=== PATIENT | female | born 1950 ===

== ENCOUNTER 2017-04-17 12:32 | Emergency (ER) | payer MEDICAID, OTHER ==
[2017-04-17 12:32] VITALS: BMI 31.8
[2017-04-17 12:53] VITALS: BP 98/66; PULSE 66; RESP 16; TEMP 99.3; O2SAT 95
[2017-04-17] MEDS ORDERED: TraMADol/Apap 37.5/325 mg Tab PO STA (13:37)
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
[2017-04-17 14:05] LABS: PH,URINE 6.5 (4.7-8.0); URINE BILIRUBIN NEGATIVE (NEGATIVE); URINE BLOOD NEGATIVE (NEGATIVE); URINE GLUCOSE (UA) NEGATIVE (NEGATIVE); URINE LEUKOCYTE ESTERASE NEGATIVE Leu/uL (NEGATIVE); URINE NITRATE NEGATIVE (NEGATIVE); URINE PROTEIN NEGATIVE mg/dL (<30 mg/dL); URINE UROBILINOGEN 0.2 E.U./dL (<1 E.U./dL)
[2017-04-17 14:07] LABS: URINE APPEARANCE CLEAR (CLEAR); URINE COLOR STRAW (YELLOW)
--- NOTE | 2017-04-17 14:28 | RAD ---
PROCEDURE: Right Hip and pelvis Radiographs. HISTORY: pain COMPARISON: None. FINDINGS: BONES: Normal. No fracture. JOINTS: Normal. SOFT TISSUES: Normal. OTHER FINDINGS: None. IMPRESSION: Negative study
== END 2017-04-17 14:39 | disposition home or self-care (01) ==
LOC: ED 12:32
DX: M54.31 Sciatica, right side (principal)
CPT/HCPCS: 73502; 81003; 96372; 99282; J1885

== ENCOUNTER 2017-08-04 11:14 | Emergency (ER) | payer MEDICARE, OTHER ==
[2017-08-04 11:15] VITALS: BMI 31.8
[2017-08-04 11:25] VITALS: RESP 18; TEMP 98
[2017-08-04] MEDS ORDERED: Promethazine/Cod 6.25mg-10mg/5ml Syr UD PO STA (11:59)
--- NOTE | 2017-08-04 11:59 | ED PDOC ---
Arrival/HPI - General Chief Complaint: Shortness Of Breath Time Seen by Provider: 08/04/17 11:55 Historian: Patient - History of Present Illness Narrative History of Present Illness (Text): 08/04/17 11:55 This 66 yo female with pmh dm, asthma, presents to this ED c/o SOB, wheezing, cough, sore throat x 2 days. Patient admits URI symptoms for 4 weeks. Denies fever, CP, palpitation, abdominal pain, urinary symptoms, recent travel, leg swelling, calf pain, hemoptysis, recent surgery, dizziness, lugo, neck stiffness, or abnormal gait. Time/Duration: Other (see hpi) Context: Home Past Medical History - Provider Review Nursing Documentation Reviewed: Yes - Infectious Disease Hx of Infectious Diseases: None - Tetanus Immunization Tetanus Immunization: Up to Date - Cardiac Hx Cardiac Disorders: Yes Hx Peripheral Edema: Yes - Pulmonary Hx Respiratory Disorders: Yes Hx Asthma: Yes - Neurological Hx Neurological Disorder: No - HEENT Hx HEENT Disorder: No - Renal Hx Renal Disorder: No - Endocrine/Metabolic Hx Endocrine Disorders: Yes Hx Diabetes Mellitus Type 2: Yes - Hematological/Oncological Hx Blood Disorders: No - Integumentary Hx Dermatological Disorder: No - Musculoskeletal/Rheumatological Hx Musculoskeletal Disorders: Yes Hx Arthritis: Yes - Gastrointestinal Hx Gastrointestinal Disorders: Yes Hx Gastritis: Yes - Genitourinary/Gynecological Hx Genitourinary Disorders: No - Psychiatric Hx Psychophysiologic Disorder: Yes Hx Anxiety: Yes Hx Depression: Yes Hx Substance Use: No - Past Surgical History Past Surgical History: No Previous - Surgical History Hx Tubal Ligation: Yes - Anesthesia Hx Anesthesia: Yes - Suicidal Assessment Feels Threatened In Home Enviroment: No Family/Social History - Physician Review Nursing Documentation Reviewed: Yes Family/Social History: Other (noncontributory) Smoking Status: Never Smoked Hx Alcohol Use: No Hx Substance Use: No Hx Substance Use Treatment: No Allergies/Home Meds Allergies/Adverse Reactions: Allergies Penicillins Allergy (Verified 08/04/17 11:17) RASH Home Medications: Home Meds Medication Instructions Recorded Confirmed Albuterol HFA [Ventolin HFA 90 2 puff IH PRN PRN 04/04/16 08/04/17 mcg/actuation (8 g)] Glipizide [Glipizide] 10 mg PO BID 04/04/16 08/04/17 Alogliptin Benzoate [Alogliptin] 25 mg PO DAILY 08/04/17 08/04/17 Umeclidinium [place] [Incruse 2 puff INH BID 08/04/17 08/04/17 Ellipta] Review of Systems - Review of Systems Constitutional: Normal. absent: Fatigue, Weight Change, Fevers Eyes: Normal ENT: Sore Throat, Rhinorrhea Respiratory: SOB, Cough, Wheezing Cardiovascular: Normal. absent: Chest Pain, Palpitations, Edema, Calf Pain, LEIGH , Orthopnea, Syncope Gastrointestinal: Normal. absent: Abdominal Pain, Nausea, Vomiting Genitourinary Female: Normal Musculoskeletal: Normal. absent: Neck Pain Skin: Normal Neurological: Normal. absent: Headache, Dizziness, Focal Weakness, Gait Changes , Speech Changes, Facial Droop, Disequilibrium, Seizure Endocrine: Normal Hemo/Lymphatic: Normal Psychiatric: Normal. absent: Anxiety, Depression, Suicidal Ideation Physical Exam Vital Signs Temp Pulse Resp BP Pulse Ox 08/04/17 14:36 84 18 130/64 96 08/04/17 13:03 18 08/04/17 11:21 98.0 F 80 18 105/70 94 L Temperature: Afebrile Blood Pressure: Normal Pulse: Regular Respiratory Rate: Normal Appearance: Positive for: Well-Appearing, Non-Toxic, Comfortable Pain Distress: None Mental Status: Positive for: Alert and Oriented X 3 - Systems Exam Head: Present: Atraumatic, Normocephalic Pupils: Present: PERRL Extroacular Muscles: Present: EOMI Conjunctiva: Present: Normal Mouth: Present: Moist Mucous Membranes Neck: Present: Normal Range of Motion, Trachea Midline. No: Meningeal Signs, MIDLINE TENDERNESS, Paraspinal Tenderness, Lymphadenopathy Respiratory/Chest: Present: Good Air Exchange, Wheezes. No: Respiratory Distress, Accessory Muscle Use, Decreased Breath Sounds, Rales, Retracting, Rhonchi, Tachypneic Cardiovascular: Present: Regular Rate and Rhythm, Normal S1, S2. No: Murmurs Abdomen: Present: Tenderness, Normal Bowel Sounds. No: Distention, Peritoneal Signs, Rebound, Guarding Back: Present: Normal Inspection. No: CVA Tenderness, Midline Tenderness, Paraspinal Tenderness Upper Extremity: Present: Normal Inspection, Normal ROM, NORMAL PULSES, Neurovascularly Intact, Capillary Refill < 2s. No: Cyanosis, Edema Lower Extremity: Present: Normal Inspection, NORMAL PULSES, Normal ROM, Capillary Refill < 2 s. No: Edema, CALF TENDERNESS Neurological: Present: GCS=15, CN II-XII Intact, Speech Normal, Motor Func Grossly Intact, Normal Sensory Function, Normal Cerebellar Funct, Gait Normal Skin: Present: Warm, Dry, Normal Color. No: Rashes Psychiatric: Present: Alert, Oriented x 3 Medical Decision Making ED Course and Treatment: 08/04/17 13:34 Patient stated she has right sided CP when she cough only. She denies constant CP. EKG was ordered 08/04/17 14:06 Re-evaluation. Patient feels better. Discussed results and plan with patient who expresses understanding. All questions answered and there is agreement with the plan to discharge home with instructions. Patient stable for discharge. Return if symptoms persist or worsen. Re-evaluation Time: 14:06 Reassessment Condition: Re-examined, Improved - RAD Interpretation Narrative RAD Interpretations (Text): 08/04/17 13:35 Chest x-rays: NAD. Questionable trace left pleural effusion Radiology Orders: 08/04/17 12:56 CHEST TWO VIEWS (PA/LAT) [RAD] Stat - EKG Interpretation Interpreted by ED Physician: Yes (NSR) Type: 12 lead EKG Comparison: No previous EKG avail. - Medication Orders Current Medication Orders: Discontinued Medications Albuterol/Ipratropium (Duoneb 3 Mg/0.5 Mg (3 Ml) Ud) 3 ml IH Q15M [facility] Stop: 08/04/17 12:31 Last Admin: 08/04/17 13:02 Dose: 3 ml Levofloxacin (Levaquin) 500 mg PO STAT STA Stop: 08/04/17 13:37 Last Admin: 08/04/17 14:24 Dose: 500 mg Prednisone (Prednisone Tab) 60 mg PO STAT ONE Stop: 08/04/17 11:59 Last Admin: 08/04/17 12:08 Dose: 60 mg Promethazine HCl/Codeine (Phenergan/Codeine Oral Syrup) 5 ml PO STAT STA Stop: 08/04/17 12:00 Last Admin: 08/04/17 12:08 Dose: 5 ml Disposition/Present on Arrival - Present on Arrival Any Indicators Present on Arrival: No History of DVT/PE: No History of Uncontrolled Diabetes: Yes Urinary Catheter: No History of Decub. Ulcer: No History Surgical Site Infection Following: None - Disposition Have Diagnosis and Disposition been Completed?: Yes Diagnosis: Acute bronchitis Disposition: HOME/ ROUTINE Disposition Time: 14:07 Patient Plan: Discharge Condition: GOOD Discharge Instructions (ExitCare): Acute Bronchitis (ED) Additional Instructions: Call private doctor for follow up visit in 1-2 days. Take medication as instructed. Return to emergency if symptoms worsen. Avoid driving or operating machinery while taking cough medication Prescriptions: Moxifloxacin [Avelox] 400 mg PO DAILY #6 tab Prednisone [Deltasone] 3 tab PO DAILY #3 tablet Promethazine DM [Phenergan DM Syrup] 5 ml PO Q4H PRN #60 ml PRN Reason: Cough Referrals: Zee Cruz DO [Primary Care Provider] - Follow up with primary Forms: [employer] (Yoruba)
[2017-08-04] MEDS: Albuterol-Ipratrop 3 mg / 0.5 (3 ml) UD IH SCH ×3 (12:08→13:02)
[2017-08-04] MEDS ORDERED: levoFLOXacin 500 MG TAB PO STA (13:36)
--- NOTE | 2017-08-04 13:53 | RAD ---
HISTORY: asthma COMPARISON: Comparison chest 10/04/2016 TECHNIQUE: Chest PA and lateral FINDINGS: LUNGS: Minor bibasilar atelectasis. Minimal blunting both CP angles left greater than right could represent tiny bilateral effusions. PLEURA: As above. No apparent pneumothorax. CARDIOVASCULAR: Normal. OSSEOUS STRUCTURES: Mild multilevel degenerative spondylosis of the thoracic spine VISUALIZED UPPER ABDOMEN: Normal. OTHER FINDINGS: None. IMPRESSION: Minor bibasilar atelectasis. Minimal blunting both CP angles left greater than right could represent tiny bilateral effusions.
[2017-08-04 14:39] VITALS: BP 130/64; PULSE 84; O2SAT 96
--- NOTE | 2017-08-06 09:30 | CARD ---
APPROVED REPORT EKG Measurement Heart [id number] <Conclusion> Normal sinus rhythm NSSTW changes No change
== END 2017-08-04 14:44 | disposition home or self-care (01) ==
LOC: ED 11:14
DX: J20.9 Acute bronchitis, unspecified (principal); E11.9 Type 2 diabetes mellitus without complications; Z98.51 Tubal ligation status; Z88.0 Allergy status to penicillin

== ENCOUNTER 2017-09-07 09:12 | Emergency (ER) | payer MEDICARE, OTHER ==
[2017-09-07 09:12] VITALS: BMI 31.8
[2017-09-07 09:29] VITALS: TEMP 97.7; O2SAT 100
--- NOTE | 2017-09-07 09:41 | ED PDOC ---
Arrival/HPI - General Chief Complaint: Cough, Cold, Congestion Time Seen by Provider: 09/07/17 09:13 Historian: Patient - History of Present Illness Narrative History of Present Illness (Text): 09/07/17 09:38 A 67 year old female, whose past medical history includes diabetes and asthma, presents to the emergency department complaining of 4 day duration sore throat, cough, congestion, and difficulty breathing. The patient states that she was seen by her Log Haul Operator yesterday who prescribed her Zithromycin (500mg) for her symptoms. She states that she took her 1st dose of the Zithromycin. She also notes that she is experiencing abdominal pain because she has not been eating as a result of her symptoms. The patient denies fevers, chills, headache, dizziness, abdominal pain, nausea, vomiting, diarrhea, back pain, neck pain, urinary/bowel changes, or any other complaint. PMD: Dr. Cruz Time/Duration: Other (4 days) Symptom Onset: Sudden Symptom Course: Unchanged Activities at Onset: Rest, Light Context: Home Past Medical History - Infectious Disease Hx of Infectious Diseases: None - Tetanus Immunization Tetanus Immunization: Up to Date - Cardiac Hx Cardiac Disorders: Yes Hx Peripheral Edema: Yes - Pulmonary Hx Respiratory Disorders: Yes Hx Asthma: Yes - Neurological Hx Neurological Disorder: No - HEENT Hx HEENT Disorder: No - Renal Hx Renal Disorder: No - Endocrine/Metabolic Hx Endocrine Disorders: Yes Hx Diabetes Mellitus Type 2: Yes - Hematological/Oncological Hx Blood Disorders: No - Integumentary Hx Dermatological Disorder: No - Musculoskeletal/Rheumatological Hx Musculoskeletal Disorders: Yes Hx Arthritis: Yes - Gastrointestinal Hx Gastrointestinal Disorders: Yes Hx Gastritis: Yes - Genitourinary/Gynecological Hx Genitourinary Disorders: No - Psychiatric Hx Psychophysiologic Disorder: Yes Hx Anxiety: Yes Hx Depression: Yes Hx Substance Use: No - Past Surgical History Past Surgical History: No Previous - Surgical History Hx Tubal Ligation: Yes - Anesthesia Hx Anesthesia: Yes - Suicidal Assessment Feels Threatened In Home Enviroment: No Family/Social History - Physician Review Nursing Documentation Reviewed: Yes Family/Social History: No Known Family HX Smoking Status: Never Smoked Hx Alcohol Use: No Hx Substance Use: No Hx Substance Use Treatment: No Allergies/Home Meds Allergies/Adverse Reactions: Allergies Penicillins Allergy (Verified 09/07/17 09:24) RASH Home Medications: Home Meds Medication Instructions Recorded Confirmed Azithromycin [Zithromax] 250 mg PO DAILY 09/07/17 09/07/17 Glipizide [Glucotrol] 10 mg PO BID 09/07/17 09/07/17 Incruse Ellipta 1 puff INH BID 09/07/17 09/07/17 Linagliptin [Tradjenta] 5 mg PO DAILY 09/07/17 09/07/17 Lorazepam [Ativan] 1 mg PO BID PRN 09/07/17 09/07/17 Review of Systems - Physician Review All systems were reviewed & negative as marked: Yes - Review of Systems Constitutional: absent: Fevers, Night Sweats ENT: Sore Throat, Rhinorrhea, Sinus Congestion Respiratory: Cough Gastrointestinal: Abdominal Pain. absent: Stool Changes, Diarrhea, Nausea, Vomiting Genitourinary Female: absent: Urine Output Changes Musculoskeletal: absent: Back Pain, Neck Pain Neurological: absent: Headache, Dizziness Physical Exam Vital Signs Reviewed: Yes Vital Signs Temp Pulse Resp BP Pulse Ox 09/07/17 11:10 89 18 102/45 L 100 09/07/17 09:20 97.7 F 59 L 17 124/67 100 Temperature: Afebrile Blood Pressure: Normal Pulse: Bradycardic Respiratory Rate: Normal Appearance: Positive for: Well-Appearing, Non-Toxic, Comfortable Pain Distress: None Mental Status: Positive for: Alert and Oriented X 3 - Systems Exam Head: Present: Atraumatic, Normocephalic Pupils: Present: PERRL Extroacular Muscles: Present: EOMI Conjunctiva: Present: Normal Mouth: Present: Moist Mucous Membranes Neck: Present: Normal Range of Motion Respiratory/Chest: Present: Wheezes (Trace expiratory wheezing.) Cardiovascular: Present: Regular Rate and Rhythm, Normal S1, S2. No: Murmurs Abdomen: Present: Normal Bowel Sounds. No: Tenderness, Distention, Peritoneal Signs Back: Present: Normal Inspection Upper Extremity: Present: Normal Inspection. No: Cyanosis, Edema Lower Extremity: Present: Normal Inspection. No: Edema Neurological: Present: GCS=15, CN II-XII Intact, Speech Normal Skin: Present: Warm, Dry, Normal Color. No: Rashes Psychiatric: Present: Alert, Oriented x 3, Normal Insight, Normal Concentration Medical Decision Making ED Course and Treatment: 09/07/17 09:43 Impression: A 67 year old female presents to the emergency department with a complaint of 3 day duration cough, sore throat, rhinorrhea, and difficulty breathing. Plan: -- Chest X-ray -- Duoneb and predniSONE -- Reassess and disposition Prior Visits: Notes and results from previous visits were reviewed. Patient was last seen in the emergency department on 08/04/17. The patient was seen in the emergency department for shortness of breath, wheezing, cough, and sore throat. The patient was discharged home. Progress Notes: 09/09/17 11:00 Finger stick 173. On reevaluation, patient is much improved. Lungs are clear with no w/r/r. Patient is speaking in full sentences and walking in the ED without any respiratory distress. Influenza is negative. CXR is negative for PNA. Patient will make sure to follow up with a primary care doctor. Patient was advised to return to the ED if symptoms worsen or any other concern. - Lab Interpretations Lab Results: Lab Results 09/07/17 09:45: Influenza Typ A,B (EIA) Negative for flu a/b - RAD Interpretation Radiology Orders: 09/07/17 09:32 CHEST PORTABLE [RAD] Stat - Medication Orders Current Medication Orders: Discontinued Medications Albuterol/Ipratropium (Duoneb 3 Mg/0.5 Mg (3 Ml) Ud) 3 ml IH Q15M HASMUKH Stop: 09/07/17 10:16 Last Admin: 09/07/17 10:37 Dose: 3 ml Prednisone (Prednisone Tab) 60 mg PO STAT STA Stop: 09/07/17 09:33 Last Admin: 09/07/17 10:08 Dose: 60 mg - Scribe Statement The provider has reviewed the documentation as recorded by the Jesus Johnston Provider Scribe Attestation: All medical record entries made by the Jesus were at my direction and personally dictated by me. I have reviewed the chart and agree that the record accurately reflects my personal performance of the history, physical exam, medical decision making, and the department course for this patient. I have also personally directed, reviewed, and agree with the discharge instructions and disposition. Disposition/Present on Arrival - Present on Arrival Any Indicators Present on Arrival: Yes History of DVT/PE: No History of Uncontrolled Diabetes: Yes Urinary Catheter: No History of Decub. Ulcer: No History Surgical Site Infection Following: None - Disposition Have Diagnosis and Disposition been Completed?: Yes Diagnosis: Bronchitis, URI (upper respiratory infection), Asthma Disposition: HOME/ ROUTINE Disposition Time: 11:00 Patient Plan: Discharge Condition: IMPROVED Discharge Instructions (ExitCare): Upper Respiratory Infection (ED) Additional Instructions: Ms Travis, thank you for letting us take care of you today. Your provider was Dr. Goddard. You were treated for Asthma, Upper Respiratory Tract Infection. The emergency medical care you received today was directed at your acute symptoms. If you were prescribed any medication, please fill it and take as directed. It may take several days for your symptoms to resolve. Return to the Emergency Department if your symptoms worsen, do not improve, or if you have any other problems. Please contact your doctor or call one of the physicians/clinics you have been referred to that are listed on the Patient Visit Information form that is included in your discharge packet. Bring any paperwork you were given at discharge with you along with any medications you are taking to your follow up visit. Our treatment cannot replace ongoing medical care by a primary care provider (PCP) outside of the emergency department. Thank you for allowing the [facility] team to be part of your care today. If you had an X-Ray or CT scan: A Radiologist will review the ED reading if any change in treatment is needed we will contact you. If you had a blood, urine, or wound culture: It will take several days for the results, if any change in treatment is needed we will contact you. If you had an STI test: It will take 48 hours for the results. Please call after 1 week if you have not heard back. Prescriptions: Albuterol HFA [Ventolin HFA 90 mcg/actuation (8 g)] 2 puff IH Q4 #1 puff Guaifenesin/Dextromethorphan [Robitussin Cough-Chest Dm Liq] 237 ml PO Q6 PRN # 1 bottle PRN Reason: Cough predniSONE [predniSONE Tab] 40 mg PO DAILY #8 tab Referrals: Zee Cruz DO [Primary Care Provider] - Follow up with primary Forms: [facility] (Czech)
[2017-09-07] MEDS: Albuterol-Ipratrop 3 mg / 0.5 (3 ml) UD IH SCH ×2 (10:08→10:37)
[2017-09-07 11:26] VITALS: BP 102/45; PULSE 89; RESP 18
--- NOTE | 2017-09-07 13:11 | RAD ---
HISTORY: cough r/o pna COMPARISON: 08/04/2017 FINDINGS: LUNGS: No active pulmonary disease. PLEURA: No significant pleural effusion identified, no pneumothorax apparent. CARDIOVASCULAR: Normal. OSSEOUS STRUCTURES: No significant abnormalities. VISUALIZED UPPER ABDOMEN: Normal. OTHER FINDINGS: None. IMPRESSION: No active disease.
== END 2017-09-07 11:10 | disposition home or self-care (01) ==
LOC: ED 09:12
DX: J45.909 Unspecified asthma, uncomplicated (principal); J06.9 Acute upper respiratory infection, unspecified

== ENCOUNTER 2017-11-22 12:17 | Emergency (ER) | payer MEDICARE, OTHER, MEDICAID ==
[2017-11-22 12:26] VITALS: BMI 32.5
--- NOTE | 2017-11-22 12:55 | ED PDOC ---
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 Patient states that she woke up this morning and began to feel left sided chest pain after coughing with associated shortness of breath and sore throat. Patient denies any fever or any other complaints at this time. Denies prior hx of cad or smoking. No calf pain or swelling. PMD: Dr. Cruz 11/22/17 18:54 Time/Duration: < week Symptom Onset: Gradual Symptom Course: Unchanged Severity Level: Mild Activities at Onset: Light Context: Home Past Medical History - Provider Review Nursing Documentation Reviewed: Yes - Infectious Disease Hx of Infectious Diseases: None - Tetanus Immunization Tetanus Immunization: Up to Date - Cardiac Hx Cardiac Disorders: Yes Hx Peripheral Edema: Yes - Pulmonary Hx Respiratory Disorders: Yes Hx Asthma: Yes - Neurological Hx Neurological Disorder: No - HEENT Hx HEENT Disorder: No - Renal Hx Renal Disorder: No - Endocrine/Metabolic Hx Endocrine Disorders: Yes Hx Diabetes Mellitus Type 2: Yes - Hematological/Oncological Hx Blood Disorders: No - Integumentary Hx Dermatological Disorder: No - Musculoskeletal/Rheumatological Hx Musculoskeletal Disorders: Yes Hx Arthritis: Yes - Gastrointestinal Hx Gastrointestinal Disorders: Yes Hx Gastritis: Yes - Genitourinary/Gynecological Hx Genitourinary Disorders: No - Psychiatric Hx Psychophysiologic Disorder: Yes Hx Anxiety: Yes Hx Depression: Yes Hx Substance Use: No - Past Surgical History Past Surgical History: No Previous - Surgical History Hx Tubal Ligation: Yes - Anesthesia Hx Anesthesia: Yes - Suicidal Assessment Feels Threatened In Home Enviroment: No Family/Social History - Physician Review Nursing Documentation Reviewed: Yes Family/Social History: No Known Family HX Smoking Status: Never Smoked Hx Alcohol Use: No Hx Substance Use: No Hx Substance Use Treatment: No Allergies/Home Meds Allergies/Adverse Reactions: Allergies Penicillins Allergy (Verified 11/22/17 12:25) RASH Home Medications: Home Meds Medication Instructions Recorded Confirmed Glipizide [Glucotrol] 10 mg PO BID 09/07/17 11/22/17 Incruse Ellipta 1 puff INH BID 09/07/17 11/22/17 Lorazepam [Ativan] 1 mg PO BID PRN 09/07/17 11/22/17 PARoxetine [Paxil] 10 mg PO DAILY 11/22/17 11/22/17 Review of Systems - Review of Systems Constitutional: Fatigue. absent: Fevers, Night Sweats Eyes: absent: Vision Changes ENT: Sore Throat. absent: Hearing Changes Respiratory: SOB, Cough Cardiovascular: Chest Pain. absent: Calf Pain, LEIGH Gastrointestinal: absent: Abdominal Pain Genitourinary Female: absent: Dysuria, Frequency Musculoskeletal: absent: Arthralgias, Back Pain Skin: absent: Rash, Pruritis Neurological: absent: Headache, Dizziness Endocrine: absent: Diaphoresis, Polyuria Hemo/Lymphatic: absent: Adenopathy Psychiatric: absent: Anxiety, Depression Physical Exam - Physical Exam Narrative Physical Exam (Text): Head: Atraumatic. Normocephalic. Eyes: PERRL. EOMI. Conjunctivae are not pale. ENT: Mucous membranes are moist and intact. Oropharynx is clear and symmetric. Neck: Supple. Full ROM. No JVD. No lymphadenopathy. No midline tenderness. Cardiovascular: Regular rate. Regular rhythm. No murmurs, rubs, or gallops. Distal pulses are 2+ and symmetric. Pulmonary/Chest: No evidence of respiratory distress. Clear to auscultation bilaterally. No wheezing, rales or rhonchi. Palpable left sided chest pain, no edema or rash. Abdominal: Soft and non-distended. There is no tenderness. No rebound, guarding, or rigidity. No organomegaly. Good bowel sounds. Back: No CVA tenderness. Extremities: No edema. No cyanosis. No clubbing. Full range of motion in all extremities. No calf tenderness. Skin: Skin is warm and dry. No petechiae. No purpura. Neurological: Alert, awake, and oriented to person, place, time, and situation. Normal speech. Motor and sensory intact. Psychiatric: Good eye contact. Normal interaction, affect, and behavior. Vital Signs Reviewed: Yes Vital Signs Temp Pulse Pulse Resp BP Pulse Ox 11/22/17 16:25 98.1 F 65 16 138/76 100 11/22/17 15:00 60 18 145/69 98 11/22/17 13:12 57 L 11/22/17 12:26 62 18 154/72 H 97 Temperature: Afebrile Blood Pressure: Hypertensive Pulse: Regular Appearance: Positive for: Well-Appearing, Non-Toxic, Comfortable Pain Distress: Mild Mental Status: Positive for: Alert and Oriented X 3 Finger Stick Blood Glucose: 162 Medical Decision Making ED Course and Treatment: 11/22/17 12:56 Impression: 67 year old female complaining of left sided chest pain with cough. Differential Diagnosis included but are not limited to: Plan: -- EKG -- Chest X-ray -- Labs -- Aspirin -- Reassess and disposition Prior Visits: Notes and results from previous visits were reviewed. Patient was last seen in the emergency department on 09/07/17 for 4 day duration sore throat, cough, congestion, and difficulty breathing, Patient was discharged home. Progress Notes: Pain is somewhat palpable. No wheezing. No calf pain. No hypoxia. She reports family hx of cad/mi. is present throughout history and physical and translated. ASA ordered. EKG and initial labs unremarkable, initial troponin unremarkable. CXR and EKG were reviewed with patient and , with translation. Limitations of these studies reviewed, as patient with family history of CAD per her, I have recommended inpatient admission with cardiology consultation. Patient states she wishes to go home. Risks were reviewed and translated with patient and understanding. She denies any suicidal or homicidal ideation. 11/22/17 15:53 Leaving Against Medical Advice (AMA): The patient is choosing to leave against medical advice. I have personally explained to the patient that choosing to do so may result in permanent bodily harm or . I have discussed at great length that without further evaluation and monitoring there may be unforeseen circumstances and/or deterioration causing permanent bodily harm or as a result of their choice. The patient is alert, oriented, and shows the mental capacity to make clear decisions regarding the patients health care at this time. The patient continues to wish to leave against medical advice. Risks explained through the . In light of the patients decision to leave against medical advice, follow-up has been arranged and the patient is aware of the importance to following up as instructed. The patient has been advised that they should return to the emergency room immediately if they change their mind at any time, or if their condition begins to change or worsen in any way. - Lab Interpretations Lab Results: 11/22/17 13:00 03/13/18 13:00 Lab Results 11/22/17 13:00: Sodium 141, Potassium 4.5, Chloride 105, Carbon Dioxide 29, Anion Gap 11, BUN 17, Creatinine 0.9, Est GFR ( Amer) > 60, Est GFR (Non- Af Amer) > 60, Random Glucose 147 H, Calcium 9.7, Total Bilirubin 0.3, AST 22, ALT 28, Alkaline Phosphatase 71, Lactate Dehydrogenase 375, Total Creatine Kinase 62, Troponin I < 0.01, Total Protein 7.2, Albumin 3.8, Globulin 3.4, Albumin/Globulin Ratio 1.1 11/22/17 13:00: Influenza Typ A,B (EIA) Negative for flu a/b 11/22/17 13:00: WBC 5.4 D, RBC 4.31, Hgb 11.9 L, Hct 38.0, MCV 88.2, MCH 27.6, MCHC 31.3, RDW 15.8 H, Plt Count 221, MPV 10.2, Gran % 43.9 L, Lymph % (Auto) 46.5 H, [place] % (Auto) 6.3 H, Eos % (Auto) 2.6, Baso % (Auto) 0.7, Gran # 2.39, Lymph # (Auto) 2.5, [place] # (Auto) 0.3, Eos # (Auto) 0.1, Baso # (Auto) 0.04 11/22/17 12:28: POC Glucose (mg/dL) 167 H I have reviewed the lab results: Yes - RAD Interpretation Radiology Orders: 11/22/17 12:50 CHEST PORTABLE [RAD] Stat Belt Loop Machine Operator: Radiologist - EKG Interpretation Interpreted by ED Physician: Yes Type: 12 lead EKG - Medication Orders Current Medication Orders: Discontinued Medications Aspirin (Aspirin Chewable) 81 mg PO STAT STA Stop: 11/22/17 12:52 Last Admin: 11/22/17 13:18 Dose: 81 mg - Scribe Statement The provider has reviewed the documentation as recorded by the Jesus Mcleod Provider Scribe Attestation: All medical record entries made by the Durgaibgila were at my direction and personally dictated by me. I have reviewed the chart and agree that the record accurately reflects my personal performance of the history, physical exam, medical decision making, and the department course for this patient. I have also personally directed, reviewed, and agree with the discharge instructions and disposition. Disposition/Present on Arrival - Present on Arrival Any Indicators Present on Arrival: No History of DVT/PE: No History of Uncontrolled Diabetes: No Urinary Catheter: No History of Decub. Ulcer: No History Surgical Site Infection Following: None - Disposition Have Diagnosis and Disposition been Completed?: Yes Diagnosis: Chest pain Disposition: AGAINST MEDICAL ADVICE Disposition Time: 16:25 Patient Plan: Discharge Condition: GOOD Discharge Instructions (ExitCare): Chest Pain (DC), Chest Pain (ED) Forms: [employer] (Kiswahili)
[2017-11-22 13:16] LABS: BASO # 0.04 K/mm3 (0.0-2.0); BASO % 0.7 % (0.0-3.0); EOS # 0.1 (0.0-0.7); EOS % 2.6 % (1.5-5.0); GRAN # 2.39 (1.4-6.5); GRAN % 43.9 % (50.0-68.0); HEMOGLOBIN 11.9 g/dL (12.0-16.0); LYMPH # 2.5 (1.2-3.4); LYMPH % 46.5 % (22.0-35.0); MEAN CELL VOLUME 88.2 fl (80.0-105.0); MEAN CORPUSCULAR HEMOGLOBIN 27.6 pg (25.0-35.0); MEAN CORPUSCULAR HGB CONC 31.3 g/dl (31.0-37.0); MEAN PLATELET VOLUME 10.2 fl (7.0-11.0); MONO # 0.3 (0.1-0.6); MONO % 6.3 % (1.0-6.0); RBC 4.31 10^6/uL (3.5-6.1); RED CELL DISTRIBUTION WIDTH 15.8 % (11.5-14.5); WHITE BLOOD COUNT 5.4 10^3/ul (4.5-11.0)
[2017-11-22 13:27] LABS: ALB/GLOB RATIO 1.1 (1.1-1.8); ALBUMIN 3.8 g/dL (3.0-4.8); ALT/SGPT 28 U/L (7-56); AST/SGOT 22 U/L (14-36); BLOOD UREA NITROGEN 17 mg/dL (7-21); CALCIUM 9.7 mg/dL (8.4-10.5); GFR AFRICAN-AMERICAN > 60; GFR NON-AFRICAN AMERICAN > 60
[2017-11-22 13:39] LABS: TROPONIN I < 0.01 ng/mL
--- NOTE | 2017-11-22 15:47 | RAD ---
HISTORY: left sided chest pain COMPARISON: Portable chest 09/07/2017. FINDINGS: LUNGS: No active pulmonary disease. PLEURA: No significant pleural effusion identified, no pneumothorax apparent. CARDIOVASCULAR: Normal. OSSEOUS STRUCTURES: No significant abnormalities. VISUALIZED UPPER ABDOMEN: Minimal elevation left hemidiaphragm again evident. OTHER FINDINGS: None. IMPRESSION: No interval acute cardiopulmonary disease appreciated.
[2017-11-22 16:26] VITALS: BP 138/76; PULSE 65; RESP 16; TEMP 98.1; O2SAT 100
--- NOTE | 2017-11-23 07:14 | CARD ---
APPROVED REPORT EKG Measurement Heart [id number] <Conclusion> Normal sinus rhythm Normal ECG
== END 2017-11-22 16:28 | disposition left against medical advice (07) ==
LOC: ED 12:17
DX: R07.9 Chest pain, unspecified (principal); E11.9 Type 2 diabetes mellitus without complications

== ENCOUNTER 2018-03-03 04:36 | Emergency (ER) | payer MEDICARE, OTHER ==
[2018-03-03 04:37] VITALS: BMI 32.5
[2018-03-03 04:54] VITALS: TEMP 99
[2018-03-03] MEDS ORDERED: Sodium Chloride 0.9% 1,000 ML IV STA (05:10)
[2018-03-03] MEDS ORDERED: Alum-Mag Hydrox-Simethicone Susp (30 mL) PO STA (05:13)
--- NOTE | 2018-03-03 05:29 | ED PDOC ---
Arrival/HPI - General Chief Complaint: GI Problem Time Seen by Provider: 03/03/18 04:58 Historian: Patient - History of Present Illness Narrative History of Present Illness (Text): 67yo female, with history of gastritis, recently diagnosed with a UTI and being treated with bactrim by her PCP, comes to ER with complaints of "shaking" and feeling cold. She reports associated epigastric abdominal pain, dysuria, nausea and chills. She also had an episode of mild chest pain this morning. She also has a history of asthma and states she has had intermittent episodes of coughing. She denies any back pain, nausea, vomiting or diarrhea. She has no other medical complaints. Past Medical History - Provider Review Nursing Documentation Reviewed: Yes - Travel History Have you recently traveled outside [place] w/in the past 3 mons?: No - Infectious Disease Hx of Infectious Diseases: None - Tetanus Immunization Tetanus Immunization: Up to Date - Cardiac Hx Cardiac Disorders: Yes Hx Peripheral Edema: Yes - Pulmonary Hx Respiratory Disorders: Yes Hx Asthma: Yes - Neurological Hx Neurological Disorder: No - HEENT Hx HEENT Disorder: No - Renal Hx Renal Disorder: No - Endocrine/Metabolic Hx Endocrine Disorders: Yes Hx Diabetes Mellitus Type 2: Yes - Hematological/Oncological Hx Blood Disorders: No - Integumentary Hx Dermatological Disorder: No - Musculoskeletal/Rheumatological Hx Musculoskeletal Disorders: Yes Hx Arthritis: Yes - Gastrointestinal Hx Gastrointestinal Disorders: Yes Hx Gastritis: Yes - Genitourinary/Gynecological Hx Genitourinary Disorders: No - Psychiatric Hx Psychophysiologic Disorder: Yes Hx Anxiety: Yes Hx Depression: Yes Hx Substance Use: No - Past Surgical History Past Surgical History: No Previous - Surgical History Hx Tubal Ligation: Yes - Anesthesia Hx Anesthesia: Yes - Suicidal Assessment Feels Threatened In Home Enviroment: No Family/Social History - Physician Review Nursing Documentation Reviewed: Yes Family/Social History: No Known Family HX Smoking Status: Never Smoked Hx Alcohol Use: No Hx Substance Use: No Hx Substance Use Treatment: No Allergies/Home Meds Allergies/Adverse Reactions: Allergies Penicillins Allergy (Verified 03/03/18 04:45) RASH Home Medications: Home Meds Medication Instructions Recorded Confirmed Glipizide [Glucotrol] 10 mg PO BID 09/07/17 03/03/18 Incruse Ellipta 1 puff INH BID 09/07/17 03/03/18 Lorazepam [Ativan] 1 mg PO BID PRN 09/07/17 03/03/18 PARoxetine [Paxil] 10 mg PO DAILY 11/22/17 03/03/18 Review of Systems - Physician Review All systems were reviewed & negative as marked: Yes - Review of Systems Constitutional: Other (chills). absent: Fevers Cardiovascular: Chest Pain Gastrointestinal: Abdominal Pain, Nausea. absent: Diarrhea, Vomiting Genitourinary Female: Dysuria Musculoskeletal: absent: Back Pain Physical Exam Vital Signs Reviewed: Yes Vital Signs Temp Pulse Resp BP Pulse Ox 03/03/18 04:45 99 F 81 14 120/45 L 94 L Temperature: Afebrile Blood Pressure: Normal Pulse: Regular Respiratory Rate: Normal Appearance: Positive for: Non-Toxic, Comfortable Pain Distress: None Mental Status: Positive for: Alert and Oriented X 3 Finger Stick Blood Glucose: 144 - Systems Exam Head: Present: Atraumatic, Normocephalic Pupils: Present: PERRL Extroacular Muscles: Present: EOMI Mouth: Present: Moist Mucous Membranes Neck: Present: Normal Range of Motion Respiratory/Chest: Present: Clear to Auscultation, Good Air Exchange. No: Respiratory Distress, Accessory Muscle Use Cardiovascular: Present: Regular Rate and Rhythm, Normal S1, S2. No: Murmurs Abdomen: Present: Tenderness (mild epigastric tenderness), Normal Bowel Sounds. No: Distention, Peritoneal Signs, Rebound, Guarding Upper Extremity: Present: Normal Inspection. No: Cyanosis, Edema Lower Extremity: Present: Normal Inspection. No: Edema Neurological: Present: GCS=15, CN II-XII Intact, Speech Normal Skin: Present: Dry, Normal Color, Other (+ sweaty). No: Rashes Psychiatric: Present: Alert, Oriented x 3, Normal Insight, Normal Concentration Medical Decision Making ED Course and Treatment: Impression: 67yo female with complaints of "Cold and sweats", abdominal pain, dysuria Differential Diagnosis included but are not limited to: Possible urosepsis vs. gastritis vs. anxiety vs. ACS Plan: -- Labs -- Urinalysis -- IV Fluids -- Maalox 30ml PO -- Zofran 4mg IVP -- Reassess and disposition Prior Visits: Notes and results from previous visits were reviewed. Patient was last seen in the emergency department on 11/22/17, was evaluated for chest pain and had elected to leave AMA Progress Notes: - Lab Interpretations Lab Results: Lab Results 03/03/18 04:52: POC Glucose (mg/dL) 144 H - EKG Interpretation EKG Interpretation (Text): Normal sinus rhythm 85bpm Non-specific T-wave flattening in V2 and V3 Normal axis Normal QTc Non-specific changes anteriorly Interpreted by ED Physician: Yes - Medication Orders Current Medication Orders: Sodium Chloride (Sodium Chloride 0.9%) 1,000 mls @ 999 mls/hr IV .Q1H1M STA Stop: 03/03/18 06:10 Discontinued Medications Al Hydrox/Mg Hydrox/Simethicone (Maalox Plus 30 Ml) 30 ml PO STAT STA Stop: 03/03/18 05:14 Ondansetron HCl (Zofran Inj) 4 mg IVP STAT STA Stop: 03/03/18 05:11 - Scribe Statement The provider has reviewed the documentation as recorded by the Jesus Kumar Provider Scribe Attestation: All medical record entries made by the Durgaibgila were at my direction and personally dictated by me. I have reviewed the chart and agree that the record accurately reflects my personal performance of the history, physical exam, medical decision making, and the department course for this patient. I have also personally directed, reviewed, and agree with the discharge instructions and disposition. Disposition/Present on Arrival - Present on Arrival History of DVT/PE: No History of Uncontrolled Diabetes: No Urinary Catheter: No History of Decub. Ulcer: No History Surgical Site Infection Following: None - Disposition Forms: [employer] (Kyrgyz)
[2018-03-03 06:18] LABS: BASO # 0.01 K/mm3 (0.0-2.0); BASO % 0.1 % (0.0-3.0); EOS % 0.4 % (1.5-5.0); GRAN # 5.95 (1.4-6.5); GRAN % 88.3 % (50.0-68.0); HEMOGLOBIN 13.1 g/dL (12.0-16.0); LYMPH # 0.6 (1.2-3.4); LYMPH % 8.7 % (22.0-35.0); MEAN CORPUSCULAR HEMOGLOBIN 28.1 pg (25.0-35.0); MEAN PLATELET VOLUME 9.5 fl (7.0-11.0); MONO # 0.2 (0.1-0.6); MONO % 2.5 % (1.0-6.0); RBC 4.67 10^6/uL (3.5-6.1); RED CELL DISTRIBUTION WIDTH 15.2 % (11.5-14.5); WHITE BLOOD COUNT 6.8 10^3/ul (4.5-11.0)
[2018-03-03 06:25] LABS: VENOUS BLOOD GAS BASE EXCESS 0.5 mmol/L (0.0-2.0); VENOUS BLOOD GAS PO2 26 mm/Hg (30-55); VENOUS BLOOD PH 7.29 (7.32-7.43)
[2018-03-03 06:26] LABS: URINE BILIRUBIN NEGATIVE (NEGATIVE); URINE BLOOD NEGATIVE (NEGATIVE); URINE GLUCOSE (UA) NEGATIVE (NEGATIVE); URINE LEUKOCYTE ESTERASE MODERATE Leu/uL (NEGATIVE); URINE PROTEIN NEGATIVE mg/dL (<30 mg/dL); URINE UROBILINOGEN 0.2 E.U./dL (<1 E.U./dL)
[2018-03-03 06:31] LABS: URINE APPEARANCE SL CLOUDY (CLEAR); URINE COLOR YELLOW (YELLOW)
[2018-03-03 06:38] LABS: ALBUMIN 4.2 g/dL (3.0-4.8); ALT/SGPT 30 U/L (7-56); AST/SGOT 38 U/L (14-36); BLOOD UREA NITROGEN 12 mg/dL (7-21); CALCIUM 9.2 mg/dL (8.4-10.5); GFR AFRICAN-AMERICAN > 60; GFR NON-AFRICAN AMERICAN 56
[2018-03-03 06:45] LABS: URINE BACTERIA FEW (NEG); URINE EPITHELIAL CELLS MANY /hpf (0-5); URINE RBC 0 - 2 /hpf (0-2)
[2018-03-03 06:50] LABS: TROPONIN I < 0.01 ng/mL
[2018-03-03] MEDS ORDERED: Famotidine 20mg/50ml 20 MG/50 ML BAG IVPB STA (07:28)
[2018-03-03 07:35] VITALS: PULSE 88; O2SAT 99
--- NOTE | 2018-03-03 08:06 | ED PDOC ---
Physical Exam Vital Signs Temp Pulse Resp BP Pulse Ox 03/03/18 07:33 88 18 104/71 99 03/03/18 04:45 99 F 81 14 120/45 L 94 L Finger Stick Blood Glucose: 144 Medical Decision Making ED Course and Treatment: 03/03/18 08:05 pt signed out to me by Dr. Lovelace, pending follow up Urinalysis, second troponin , reeval, and disposition. 03/03/18 10:30 Labs reviewed and normal. Troponin negative x 2. Patient is not feeling nausea or abdominal pain. Abdomen is soft and not tender. Not distended. She is able to tolerate PO fluids. No shivers in ED. She does state that she has a history of gastritis. I explained to her that next time she takes the bactrim for her UTI to make sure she takes it with food so that as to not upset her stomach. Patient was explained the importance of follow up with her PMD. She was advised to return to the ED if symptoms worsen or any other concern. - Lab Interpretations Lab Results: 03/03/18 05:50 03/03/18 05:50 Lab Results 03/03/18 06:19: Urine Color Yellow, Urine Appearance Sl cloudy, Urine pH 6.0, Ur Specific Clifford 1.010, Urine Protein Negative, Urine Glucose (UA) Negative, Urine Ketones Negative, Urine Blood Negative, Urine Nitrate Negative, Urine Bilirubin Negative, Urine Urobilinogen 0.2, Ur Leukocyte Esterase Moderate H, Urine RBC 0 - 2, Urine WBC 5 - 10, Ur Epithelial Cells Many, Urine Bacteria Few 03/03/18 05:50: pO2 26 L, VBG pH 7.29 L, VBG pCO2 59.0, VBG HCO3 28.4 H, VBG Total CO2 30.2 H, VBG O2 Sat (Calc) 54.0, VBG Base Excess 0.5, VBG Potassium 4.3 , Sodium 137.0, Chloride 105.0, Glucose 159 H, Lactate 1.6, FiO2 21.0, Venous Blood Potassium 4.3 03/03/18 05:50: Sodium 141, Chloride 103, Potassium 4.2, Carbon Dioxide 28, Anion Gap 15, BUN 12, Creatinine 1.0, Est GFR ( Amer) > 60, Est GFR (Non- Af Amer) 56, Random Glucose 151 H, Calcium 9.2, Total Bilirubin 0.6, AST 38 H D , ALT 30, Alkaline Phosphatase 99, Lactate Dehydrogenase 391, Total Creatine Kinase 64, Troponin I < 0.01, Total Protein 8.2, Albumin 4.2, Globulin 4.0, Albumin/Globulin Ratio 1.0 L 03/03/18 05:50: WBC 6.8 D, RBC 4.67, Hgb 13.1, Hct 39.7, MCV 85.0 D, MCH 28.1 , MCHC 33.0, RDW 15.2 H, Plt Count 207, MPV 9.5, Gran % 88.3 H, Lymph % (Auto) 8.7 L, [place] % (Auto) 2.5, Eos % (Auto) 0.4 L, Baso % (Auto) 0.1, Gran # 5.95, Lymph # (Auto) 0.6 L, [place] # (Auto) 0.2, Eos # (Auto) 0.0, Baso # (Auto) 0.01 03/03/18 04:52: POC Glucose (mg/dL) 144 H - RAD Interpretation Radiology Orders: 03/03/18 06:06 CHEST TWO VIEWS (PA/LAT) [RAD] Stat - Medication Orders Current Medication Orders: Discontinued Medications Al Hydrox/Mg Hydrox/Simethicone (Maalox Plus 30 Ml) 30 ml PO STAT STA Stop: 03/03/18 05:14 Last Admin: 03/03/18 05:23 Dose: 30 ml Sodium Chloride (Sodium Chloride 0.9%) 1,000 mls @ 999 mls/hr IV .Q1H1M STA Stop: 03/03/18 06:10 Last Admin: 03/03/18 05:30 Dose: 999 mls/hr eMAR Start Stop Document 03/03/18 05:30 RG (Rec: 03/03/18 06:30 RG [id number]) Intravenous Solution Start Date 03/03/18 Start Time 05:30 Famotidine (Pepcid 20mg/50ml Premix) 20 mg in 50 mls @ 100 mls/hr IVPB STAT STA Stop: 03/03/18 07:57 Last Admin: 03/03/18 07:56 Dose: 100 mls/hr eMAR Start Stop Document 03/03/18 07:56 EQ (Rec: 06/22/18 07:56 EQ [id number]) Intravenous Solution Start Date 03/03/18 Start Time 07:56 Ondansetron HCl (Zofran Inj) 4 mg IVP STAT STA Stop: 03/03/18 05:11 Last Admin: 03/03/18 05:23 Dose: 4 mg IVP Administration Document 03/03/18 05:23 RG (Rec: 03/03/18 05:23 RG [id number]) Charges for Administration # of IVP Administrations 1 Ondansetron HCl (Zofran Inj) 4 mg IVP STAT STA Stop: 03/03/18 07:28 Last Admin: 03/03/18 07:56 Dose: 4 mg IVP Administration Document 03/03/18 07:56 EQ (Rec: 03/03/18 07:56 EQ [id number]) Charges for Administration # of IVP Administrations 1 - Scribe Statement The provider has reviewed the documentation as recorded by the Scribe Eliz Esteban All medical record entries made by the Scribe were at my direction and personally dictated by me. I have reviewed the chart and agree that the record accurately reflects my personal performance of the history, physical exam, medical decision making, and the department course for this patient. I have also personally directed, reviewed, and agree with the discharge instructions and disposition. Disposition/Present on Arrival - Present on Arrival Any Indicators Present on Arrival: No History of DVT/PE: No History of Uncontrolled Diabetes: No Urinary Catheter: No History of Decub. Ulcer: No History Surgical Site Infection Following: None - Disposition Have Diagnosis and Disposition been Completed?: Yes Diagnosis: Abdominal pain, UTI (urinary tract infection) Disposition: HOME/ ROUTINE Disposition Time: 10:30 Patient Plan: Discharge Condition: IMPROVED Discharge Instructions (ExitCare): Urinary Tract Infection, Adult (DC), Acute Abdomen (Belly Pain), Adult (DC) Print Language: GREEK Additional Instructions: SHANNON PACHECO, thank you for letting us take care of you today. Your provider was Reed Goddard DO and you were treated for Abdominal Pain, UTI. The emergency medical care you received today was directed at your acute symptoms. If you were prescribed any medication, please fill it and take as directed. It may take several days for your symptoms to resolve. Return to the Emergency Department if your symptoms worsen, do not improve, or if you have any other problems. Please contact your doctor or call one of the physicians/clinics you have been referred to that are listed on the Patient Visit Information form that is included in your discharge packet. Bring any paperwork you were given at discharge with you along with any medications you are taking to your follow up visit. Our treatment cannot replace ongoing medical care by a primary care provider outside of the emergency department. Thank you for allowing the [facility] team to be part of your care today. If you had an X-Ray or CT scan: A Radiologist will review the ED reading if any change in treatment is needed we will contact you. If you had a blood, urine, or wound culture: It will take several days for the results, if any change in treatment is needed we will contact you. If you had an STI test: It will take 48 hours for the results. Please call after 1 week if you have not heard back. Prescriptions: Famotidine [Pepcid] 20 mg PO DAILY #30 tab Ondansetron ODT [Zofran ODT] 4 mg PO Q6 #14 odt Referrals: Zee Cruz DO [Family Provider] - Follow up with primary Forms: [employer] (Telugu), Talk[employer] (Bermudian), WORK NOTE LINDSAY Risk Score for UA/NSTEMI - LINDSAY Risk Score Age > 64: YES 3 or more CAD Risk Factors: NO Known CAD (Stenosis greater than 50%): NO Aspirin use in past 7 days: NO Severe Angina: NO EKG ST changes greater than 0.5mm: NO Positive Cardiac Marker: NO LINDSAY Score: 1 % risk at 14 days of: all cause mortality, new or recurrent TN, or severe recurrent ischemia requiring urgen revascularization: 5%
--- NOTE | 2018-03-03 08:26 | RAD ---
HISTORY: rigors COMPARISON: 11/22/2017 TECHNIQUE: Chest PA and lateral FINDINGS: LUNGS: No active pulmonary disease. PLEURA: No significant pleural effusion identified. No pneumothorax apparent. CARDIOVASCULAR: Normal. OSSEOUS STRUCTURES: No significant abnormalities. VISUALIZED UPPER ABDOMEN: Normal. OTHER FINDINGS: None. IMPRESSION: No active disease.
--- NOTE | 2018-03-03 09:10 | CARD ---
APPROVED REPORT EKG Measurement Heart [id number] <Conclusion> Normal sinus rhythm Nonspecific ST abnormality Abnormal ECG
[2018-03-03 09:50] LABS: TROPONIN I < 0.01 ng/mL
[2018-03-03 10:08] VITALS: BP 109/63
[2018-03-03 10:33] VITALS: RESP 18
== END 2018-03-03 10:33 | disposition home or self-care (01) ==
LOC: ED 04:36
DX: N39.0 Urinary tract infection, site not specified (principal); R10.13 Epigastric pain
CPT/HCPCS: 71046; 80053; 81001; 82550; 82803; 82948; 83615; 84484; 85025; 87040; 87086; 93005; 96374; 96375; 99285; J2405; J7030